=== PATIENT | male | born 1950 | race Caucasian/White ===

== ENCOUNTER 2016-12-24 10:54 | Emergency (ER) | payer MEDICARE ==
[~2016-12-24] VITALS: Ht 172.7 cm; Wt 72.6 kg
[2016-12-24] MEDS ORDERED: BACTRIM DS TAB1 EACH PO (12:56)
== END 2016-12-24 13:05 | disposition home or self-care (01) ==
LOC: ED 10:54
PROC: 0H9HXZZ Drainage of Right Upper Leg Skin, External Approach (ICD-10-PCS; principal; 2016-12-24)
DX: L02.415 Cutaneous abscess of right lower limb (principal); F17.200 Nicotine dependence, unspecified, uncomplicated; Z88.8 Allergy status to other drugs, medicaments and biological substances
CPT/HCPCS: 10060; 87070; 87077; 87184; 87205; 99283

== ENCOUNTER 2017-05-06 06:55 | Day surgery (SDC) | payer MEDICARE ==
[~2017-05-06] VITALS: Ht 170.2 cm; Wt 66.7 kg
[~2017-05-06 06:55] MED LIST: BACTRIM DS TAB1 EACH PO
--- NOTE | 2017-05-06 10:34 | NUR ---
comfortable. has warm blanket on. has been kept updated. iv patent.
--- NOTE | 2017-05-06 13:09 | NUR ---
05/06/17 1309 Kathy Vo 1252 PT ARRIVED WITH A COUGH, AND SUCTION WAS USED. 1306 PT O2 SAT 100%, PT AWAKE AND ALERT.
[2017-05-06] MEDS ORDERED: MAPAP325 MG PO (13:20)
[2017-05-06] MEDS ORDERED: IBUPROFEN600 MG PO (13:20)
[2017-05-06] MEDS ORDERED: HYDROCODON-ACE1 EA10 PO (13:20)
--- NOTE | 2017-05-06 13:43 | NUR ---
PT IS BACK TO DS FROM PACU. CALL LIGHT WITHIN REACH. NO C/O'S AT THIS TIME.
--- NOTE | 2017-05-06 14:48 | NUR ---
AMB TO BR AND VOIDS QS. TAKING PO WELL. DENIES NEED FOR PAIN MEDICINE. DENIES NAUSEA. WANTS TO GO HOME.
--- NOTE | 2017-05-06 14:49 | NUR ---
SHOWN FRIEND AND PT DRAIN EMPTYING. STATES THEY UNDERSTAND AND NO QUESTIONS.
--- NOTE | 2017-05-06 15:12 | EKG ---
[facility] [address] [facility] [place] [address] Signed Normal sinus rhythm Normal ECG No previous ECGs available Confirmed by SHAWN LORENZO MD ([id number]) on 05/06/2017 3:11:49 PM Electronically Signed By: SHAWN LORENZO MD 05/06/17 1512 PATIENT NAME: KALEB LYNCH Electrocardiogram DATE OF : 50 PHYSICIAN: SHAWN LORENZO MD REPORT #: [id number] REPORT IS CONFIDENTIAL AND NOT TO BE RELEASED WITHOUT AUTHORIZATION
--- NOTE | 2017-05-07 15:03 | OR ---
[facility] [address] [place], [place] [address] Signed DATE OF OPERATION: 05/06/2017 SURGEON: Bruce Hernandez MD PREOPERATIVE DIAGNOSIS: Right posterior thorax large skin neoplasm, 5 cm. POSTOPERATIVE DIAGNOSIS: Right posterior thorax large skin neoplasm, 5 cm. PROCEDURES: 1. Excision of right posterior thorax skin neoplasm, 7 cm excision size, full thickness. 2. Laterally based rotational flap closure. ANESTHESIA: General endotracheal, Li Guzman CRNA. DRAINS: 7 mm Dez. INDICATION: This 67-year-old white man is a patient of Dr. Beob Sainz and has additionally been seen by CARLOS Arita, at [facility]. 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 He has no regional adenopathy. The patient does have mental deficiency to a degree and does have a conservator for his care (Ronny Liu). He is admitted at this time to undergo excision of the neoplasm with closure probably with rotational flap. He and his conservator understand the risks of bleeding, infection, flap failure, need for other means of closure, and other unforeseen complications and wished to proceed. FINDINGS: The lesion itself was moist and well contained and circumscribed. A 1 cm margin was maintained on excision making the excision size 7 cm in diameter. A laterally based random pattern flap was used to secure closure. The flap appeared completely viable. A drain was placed as well. DESCRIPTION OF PROCEDURE: The patient was brought to the operating room, given a general endotracheal anesthetic. He was placed in a prone position and his posterior thorax was prepared with Betadine-based solution and draped sterilely. Preoperative antibiotics were given as well. Sequential compression device stocking was used and heparin was subcutaneously administered. Photographs were taken at the outset. Excision of the lesion was undertaken with a 15 blade with a 1 cm margin. Dissection carried through the dermis with electrocautery. Full-thickness excision down to the posterior thoracic fascia was undertaken. The specimen was marked for orientation. A marker was used to outline a Electronically Signed By: BRUCE HERNANDEZ MD 05/07/17 1503 PATIENT NAME: KALEB LYNCH OPERATIVE REPORT DATE OF : 50 PHYSICIAN: BRUCE HERNANDEZ MD REPORT #: [id number] REPORT IS CONFIDENTIAL AND NOT TO BE RELEASED WITHOUT AUTHORIZATION [facility] [address] [place] [id number] Signed rotational flap, which seemed most optimal to be laterally and inferiorly based in relation to the lesion. It was too close to the midline to allow for an advancement flap from that direction and too close to the upper part of the shoulder for similar source of closure from that perspective. The flap was elevated with electrocautery directly off the fascia of the posterior thorax. Easily rotated into position. Interrupted 2-0 Vicryl was used to secure the deep dermal layers. Not mentioned previously was elevation of the skin in the medial aspect and superiorly and inferiorly to a degree. Once completely secured with interrupted 2-0 Vicryl, a stab incision was made inferiorly and a 7 mm flat Dez drain was placed in the sub-flap position. The skin was then closed definitively with running 4-0 nylon suture. Irrigation was undertaken and a Mepilex dressing applied as was an OpSite. The drain was maintained in a long enough amount to allow for management of the drain by the patient himself. Blood loss was minimal. Complications none. Photographs were taken throughout. The patient tolerated the procedure well and was taken to the recovery room after extubation in good condition. MD CLINTON Marie/SANDERL /[id number] cc: CARLOS Arita [facility] Bebo Sainz MD Electronically Signed By: BRUCE HERNANDEZ MD 05/07/17 1503 PATIENT NAME: KALEB LYNCH AASHISH OPERATIVE REPORT DATE OF : 50 PHYSICIAN: BRUCE HERNANDEZ MD REPORT #: [id number] REPORT IS CONFIDENTIAL AND NOT TO BE RELEASED WITHOUT AUTHORIZATION
== END 2017-05-06 14:50 | disposition home or self-care (01) ==
LOC: DS 06:55
PROVIDERS: Surgery
PROC: 0JR707Z Replacement of Back Subcutaneous Tissue and Fascia with Autologous Tissue Substitute, Open Approach (ICD-10-PCS; principal; 2017-05-06 10:15)
DX: C44.519 Basal cell carcinoma of skin of other part of trunk (principal); F79 Unspecified intellectual disabilities; F17.210 Nicotine dependence, cigarettes, uncomplicated; Z88.4 Allergy status to anesthetic agent; Z80.8 Family history of malignant neoplasm of other organs or systems; Z98.890 Other specified postprocedural states
CPT/HCPCS: 00400; 80053; 88305; 93005; 93010; J0330; J0690; J1100; J1644; J2250; J2405; J2704; J3010; J7120

== ENCOUNTER → 2018-03-13 | Emergency (ER) | payer MEDICARE ==
[~2018-03-13] VITALS: Ht 172.7 cm; Wt 71.7 kg
[~2018-03-13] MED LIST changes: +CEPHALEXIN500 MG PO; +HYDROCODON-ACE1 EA10 PO; +IBUPROFEN600 MG PO; +MAPAP325 MG PO
== END ==
LOC: ED 18:02
DX: L03.114 Cellulitis of left upper limb (principal); F17.200 Nicotine dependence, unspecified, uncomplicated; Z88.8 Allergy status to other drugs, medicaments and biological substances
CPT/HCPCS: 99283